=== PATIENT | male | born 1995 | race Caucasian/White ===

== ENCOUNTER 2021-07-22 13:12 | Inpatient (IN) | payer OTHER, BC ==
[~2021-07-22] VITALS: Ht 177.8 cm; Wt 73.0 kg
[2021-07-22] MEDS ORDERED: Vivitrol380 MG SC (13:42)
[2021-07-22 15:02] LABS: Influenza A, PCR NEGATIVE (NEGATIVE); Influenza B, PCR NEGATIVE (NEGATIVE); Resp Syncytial Virus, PCR NEGATIVE (NEGATIVE); SARS-Cov-2 (COVID-19) PCR, MMC NEGATIVE (NEGATIVE)
[2021-07-22 20:58] LABS: Hematocrit 33.1 % (37.0-53.0); Hemoglobin 11.2 g/dL (13.5-17.5)
--- NOTE | 2021-07-23 00:50 | NUR ---
LATE ENTRY PT ARRIVED TO FLOOR AT 2030 ON OR BED, ACCOMPANIED BY TONG DREW. PT IS A&O X4, POD#O FOR AMPUTATION OF RIGHT HAND DIGITS #2-5, FOLLOWING A CRUSH INJURY AT WORK. 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 HIS RIGHT HAND IS WRAPPED IN GAUZE, SECURED WITH SHAWNEE BANDAGE. RIGHT ARM IS ELEVATED ON PILLOWS. 2100: PHONE CALL PLACED TO DR. QUINTANA WITH DR. ZAMORA'S REQUEST FOR HOSPITALIST CONSULT FOR PAIN MANAGEMENT. 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 HE HAS BEEN SOBER X4 MONTHS. LAST NALTREXONE INJECTION WAS 07/07. 2300: PHONE CALLED TO DR. QUINTANA WITH STATUS UPDATE. PT HAS RECEIVED PRN PAIN MEDICATION PER EMAR, WITHOUT RELIEF. PT IS GRIMACING, RIGID, AND AT TIMES SHAKING, RATING PAIN 10/10. NURSE ATTEMPTS GUIDED IMAGERY WITH PT, WHICH PROVIDES SOME RELIEF - MUSCLES APPEAR RELAXED, NO LONGER GRIMACING. DR. QUINTANA WITH ORDERS FOR DILAUDID AND CONTINOUS PULSE OXIMETRY FOR HIGH RISK PAIN MANAGEMENT. RT NOTIFIED BY RN VIA [employer]. 0000: PT NOW ASLEEP. PULSE OX IN PLACE, SATING 97%, HR IN THE 80'S. RN SITTING AT COMPUTER OUTSIDE PT'S ROOM, FREQUENT ROUNDING.
[2021-07-23 05:18] LABS: BASOPHILS ABSOLUTE AUTO 0.03 K/mm3 (0.00-0.23); BASOPHILS PERCENT AUTO 0 % (0-2); EOSINOPHILS ABSOLUTE AUTO 0.05 K/mm3 (0.00-0.68); EOSINOPHILS PERCENT AUTO 1 % (0-6); Hematocrit 31.2 % (37.0-53.0); Hemoglobin 10.6 g/dL (13.5-17.5); IMMATURE GRAN ABSOLUTE AUTO 0.01 K/mm3 (0.00-0.10); IMMATURE GRAN PERCENT AUTO 0 % (0-1); LYMPHOCYTES ABSOLUTE AUTO 1.37 K/mm3 (0.84-5.20); LYMPHOCYTES PERCENT AUTO 20 % (21-46); MONOCYTES ABSOLUTE AUTO 0.98 K/mm3 (0.16-1.47); MONOCYTES PERCENT AUTO 14 % (4-13); Mean Corpuscular HGB 31.5 pg (26.0-34.0); Mean Corpuscular Volume 93 fL (80-100); NEUTROPHILS PERCENT AUTO 65 % (41-73); Platelet Count 225 K/mm3 (150-400); RDW Coefficient Variation 13.3 % (11.7-14.2); RDW Standard Deviation 45.3 fL (35.1-46.3); Red Blood Cell Count 3.37 M/mm3 (4.30-5.90); White Blood Cell Count 6.84 K/mm3 (4.00-11.30)
--- NOTE | 2021-07-23 05:32 | NUR ---
PT WAS ABLE TO FALL ASLEEP AROUND MIDNIGHT AND SLEPT FOR A FEW HOURS. THE PT APPEARED MOST RESTFUL AFTER PRN DILAUDID 1MG IV. RIGHT HAND IS DRESSED, C/D/I. VOIDED 1100 IN URINAL, WITH ASSISTANCE FROM NURSE. CONTINUOUS PULSE OXIMETRY ORDERED DUE TO HIGH RISK PAIN MANAGEMENT, REMAINED SATING ABOVE 96%. WILL USE CALL LIGHT FOR ASSISTANCE. TOLERATING REGULAR DIET. PT STATES HE IS EAGER FOR DISCHARGE TOMORROW, RN ADVISED WILL NEED TO HAVE PAIN WELL MANAGED BEFORE HE IS DISCHARGED. A&O X4.
--- NOTE | 2021-07-23 13:00 | NUR ---
ALLERGY PT REPORTS PENICILLIN ALLERGY AN INFANT BUT HAS TAKEN AMOXICILLIN AN ADULT WITH NO SIDE EFFECTS OR REACTIONS.
--- NOTE | 2021-07-23 19:19 | NUR ---
SHIFT SUMMARY POD1 PARTIAL R HAND AMPUTATION, A/OX4, VSS, TOLERATING PO, PAIN BETTER MANAGED c GABAPENTIN AND TORADOL. PT ABLE TO AMBULATE INDEPENDENTLY IN ROOM. NO ACUTE EVENTS THIS SHIFT, CALL LIGHT IN REACH, REPORT GIVEN TO RAD FORTUNE.
--- NOTE | 2021-07-24 04:56 | NUR ---
SHIFT SUMMARY: PT AAOX4 VS WNL ON RA. BANDAGE ON RIGHT HAND C/D/I. AMPUTATION OF FINGERS 2ND-5TH. FACIAL GRIMACING NOTED. PAIN LEVEL ASSESS 02/01. PT AMBULATED TO BATHROOM FOR SHOWER. MONITORED FOR SAFETY. IV SITE DRY AND INTACT PATENT. BOWEL SOUND ACTIVE. PEDAL PULSE PRESENT. PT MEDICATED FOR PAIN AND REASSESSED. IV PAIN MEDICATION GIVEN PER EMAR. TOLERATED WELL. ANTIBOTIC TOLERATED ORDERED. PT RESTING THOUGHOUT THE NIGHT WITH EYES CLOSED. PULSE OX IN PLACE. O2 SAT 98% ON RA HR 67. MONITORING AND MAINTAIN ALL PRECATIONS.
[2021-07-24 05:13] LABS: BASOPHILS ABSOLUTE AUTO 0.04 K/mm3 (0.00-0.23); BASOPHILS PERCENT AUTO 1 % (0-2); EOSINOPHILS ABSOLUTE AUTO 0.18 K/mm3 (0.00-0.68); EOSINOPHILS PERCENT AUTO 3 % (0-6); Hemoglobin 11.7 g/dL (13.5-17.5); IMMATURE GRAN PERCENT AUTO 0 % (0-1); LYMPHOCYTES ABSOLUTE AUTO 1.46 K/mm3 (0.84-5.20); LYMPHOCYTES PERCENT AUTO 25 % (21-46); MONOCYTES ABSOLUTE AUTO 0.95 K/mm3 (0.16-1.47); MONOCYTES PERCENT AUTO 16 % (4-13); Mean Corpuscular HGB Conc 33.4 g/dL (31.5-36.5); Mean Corpuscular Volume 93 fL (80-100); Mean Platelet Volume 9.7 fL (9.1-12.4); NEUTROPHILS ABSOLUTE AUTO 3.22 K/mm3 (1.96-9.15); NEUTROPHILS PERCENT AUTO 55 % (41-73); Platelet Count 251 K/mm3 (150-400); RDW Coefficient Variation 13.2 % (11.7-14.2); RDW Standard Deviation 44.8 fL (35.1-46.3); Red Blood Cell Count 3.78 M/mm3 (4.30-5.90); White Blood Cell Count 5.85 K/mm3 (4.00-11.30)
[2021-07-24 05:51] LABS: Anion Gap 4 mmol/L (6-16); Blood Urea Nitrogen 9 mg/dL (8-24); Bun/Creatinine Ratio 11.3 (12.0-20.0); CO2, Blood 26 mmol/L (21-32); Calcium, Blood 8.4 mg/dL (8.5-10.1); Chloride, Blood 108 mmol/L (98-108); Glomerular Filtration Rate >60 (60-); Glucose, Blood 100 mg/dL (70-99); Sodium, Blood 138 mmol/L (136-145)
--- NOTE | 2021-07-24 09:51 | NUR ---
PAIN PT REPORTS IMPROVEMENT IN PAIN MANAGEMENT, REPORTS PAIN "MUCH BETTER" COMPARED TO YESTERDAY, DISCUSSED CURRENT MEDICATIONS AND PSSIBLE DISCHARGE MEDICATIONS.
[2021-07-24] MEDS ORDERED: TRAM50 PO (12:50)
[2021-07-24] MEDS ORDERED: GABA100 PO (12:53)
--- NOTE | 2021-07-24 13:54 | NUR ---
DISCHARGE PT GIVEN DISCHARGE HOME CARE INSTRUCTIONS FROM SURGEON, DRESSING CHANGE INFORMATION WAS AGAIN GIVEN BY THIS RN WHEN PROVIDING HOME CARE SUPPLIES, IMPORTANCE OF PROPER DRESSING CHANGES WAS AGAIN DISCUSSED WHILE GOING OVER DISCHARGE PAPERWORK BY [employer] SALES AGENT. PT REPORTED UNDERSTANDING OF HOME CARE.
== END 2021-07-24 13:40 | disposition home or self-care (01) | DRG 906 ==
LOC: ER 13:12 → SURS 13:13
PROVIDERS: Emergency Medicine; Family Medicine; ADMIT Orthopaedic Surgery
PROC: 0X6S0Z0 Detachment at Right Ring Finger, Complete, Open Approach (ICD-10-PCS; 2021-07-22)
PROC: 0X6 Anatomical Regions, Upper Extremities, Detachment (ICD-10-PCS; 2021-07-22)
PROC: 0X6V0Z0 Detachment at Right Little Finger, Complete, Open Approach (ICD-10-PCS; 2021-07-22)
PROC: 0X6J0ZC Detachment at Right Hand, Partial 3rd Ray, Open Approach (ICD-10-PCS; 2021-07-22)
PROC: 0X6N0Z0 Detachment at Right Index Finger, Complete, Open Approach (ICD-10-PCS; principal; 2021-07-22 17:00)
DX: S67.190A Crushing injury of right index finger, initial encounter (principal); S67.194A Crushing injury of right ring finger, initial encounter; S67.192A Crushing injury of right middle finger, initial encounter; S67.196A Crushing injury of right little finger, initial encounter; W23.0XXA Caught, crushed, jammed, or pinched between moving objects, initial encounter; F11.10 Opioid abuse, uncomplicated; Z88.0 Allergy status to penicillin
CPT/HCPCS: 0241U; 36415; 73120; 80048; 85014; 85018; 85025; 86140; 88300; 90471; 90714; 96365; 96375; 96376; 99285-25; A9270; J0690; J1170; J1885; J2250; J2370; J2704; J3010; J7030

== ENCOUNTER 2025-04-04 16:52 | Emergency (ER) | payer OTHER ==
[~2025-04-04] VITALS: Ht 177.8 cm; Wt 77.1 kg
[~2025-04-04 16:52] MED LIST: GABA100 PO; TRAM50 PO; Vivitrol380 MG SC
[2025-04-04 17:13] VITALS: BP 145/84
== END 2025-04-04 18:01 | disposition home or self-care (01) ==
LOC: ER 16:52
DX: S61.452A Open bite of left hand, initial encounter (principal); W54.0XXA Bitten by dog, initial encounter; Z88.0 Allergy status to penicillin; Z91.013 Allergy to seafood; Z79.899 Other long term (current) drug therapy
CPT/HCPCS: 12001; 99282-25